=== PATIENT | female | born 1930 | race African-American/Black ===

== ENCOUNTER 2018-07-09 11:20 | Inpatient (IN) | payer OTHER ==
[~2018-07-09] VITALS: Ht 170.2 cm; Wt 78.0 kg
[2018-07-09 12:09] LABS: PLATELET COUNT 272 x10^3mcL (130-400)
[2018-07-09 12:15] LABS: CALCIUM 8.9 mg/dL (8.5-10.1); CARBON DIOXIDE 30.9 mmol/L (21-32); CHLORIDE SERUM 101 mmol/L (98-107); GLUCOSE SERUM 104 mg/dL (74-106); POTASSIUM SERUM 4.4 mmol/L (3.5-5.1); SODIUM SERUM 138 mmol/L (136-145)
[2018-07-09 12:18] LABS: RED CELL DISTRIBUTION WIDTH 15.8 % (11.5-14.5)
[2018-07-09 12:20] LABS: ALBUMIN 3.4 g/dL (3.4-5.0); ALKALINE PHOSPHATASE 80 U/L (46-116); ALT/SGPT 17 U/L (14-59); AST/SGOT 11 U/L (15-37); BILIRUBIN TOTAL 0.34 mg/dL (0.20-1.00); TOTAL PROTEIN, SERUM 7.3 g/dL (6.4-8.2)
[2018-07-09 12:56] LABS: BAND NEUTROPHIL 0 % (0-10); BASOPHIL 0 % (0-2); MONOCYTE 12 % (0-7); SEGMENTED NEUTROPHILS 59 % (37-75)
[2018-07-09 12:57] LABS: rbc morphology (normal/abnorm) ABNORMAL (NORMAL)
[2018-07-09] MEDS ORDERED: HYDROCHLOROTH12.5 M2 PO (13:46)
[2018-07-09] MEDS ORDERED: D-20001 TAB PO (13:46)
[2018-07-09] MEDS ORDERED: VITAMIN C PUR1000 M1 PO (13:46)
[2018-07-09] MEDS ORDERED: LEXAPRO5 M1 PO (13:46)
[2018-07-09 14:14] LABS: UA SPECIFIC GRAVITY <=1.005 (1.005-1.035); microscopic required? YES; urine erythrocyte 1+ (NEGATIVE)
[2018-07-09 14:24] VITALS: BP 146/49
[2018-07-09 14:25] LABS: AMPHETAMINE QUAL UR NONE DETECTED (See below)
[2018-07-09 14:32] VITALS: Ht 170.2 cm; Wt 78.0 kg
[2018-07-09 18:58] VITALS: BP 129/46
[2018-07-09 19:36] LABS: MAGNESIUM 1.9 mg/dL (1.8-2.4); PHOSPHOROUS 3.7 mg/dL (2.5-4.9)
[2018-07-09 19:42] LABS: CHOLESTEROL/HDL RATIO 2.2
[2018-07-09 19:44] LABS: FREE T4 0.89 ng/dL (0.76-1.46); FREE THYROXINE INDEX 3.1 ug/dL (1.4-4.5); T3 TOTAL 1.2 ng/mL; T4(THYROXINE) 8.8 ug/dL (4.7-13.3)
[2018-07-09 21:17] VITALS: BP 129/49
[2018-07-10 05:44] VITALS: BP 140/67
[2018-07-10 08:30] LABS: BASOPHIL % 1.1 % (0-2); PLATELET COUNT 238 x10^3mcL (130-400)
[2018-07-10 08:32] LABS: RED CELL DISTRIBUTION WIDTH 16.2 % (11.5-14.5)
[2018-07-10 09:26] VITALS: BP 147/67
[2018-07-10 11:02] LABS: CALCIUM 8.6 mg/dL (8.5-10.1); CHLORIDE SERUM 105 mmol/L (98-107); CREATININE SERUM 0.8 mg/dL (0.6-1.0); GLUCOSE SERUM 118 mg/dL (74-106); MAGNESIUM 1.9 mg/dL (1.8-2.4); PHOSPHOROUS 3.6 mg/dL (2.5-4.9); POTASSIUM SERUM 3.9 mmol/L (3.5-5.1); SODIUM SERUM 139 mmol/L (136-145)
[2018-07-10 13:59] VITALS: BP 142/52
[2018-07-10 17:33] VITALS: BP 157/64
[2018-07-10 20:52] VITALS: BP 147/60
[2018-07-11 05:12] VITALS: BP 140/66
[2018-07-11 06:06] LABS: PLATELET COUNT 240 x10^3mcL (130-400)
[2018-07-11 06:36] LABS: RED CELL DISTRIBUTION WIDTH 16.2 % (11.5-14.5)
[2018-07-11 06:39] LABS: CALCIUM 8.5 mg/dL (8.5-10.1); CHLORIDE SERUM 107 mmol/L (98-107); CREATININE SERUM 0.7 mg/dL (0.6-1.0); GLUCOSE SERUM 117 mg/dL (74-106); PHOSPHOROUS 3.7 mg/dL (2.5-4.9); SODIUM SERUM 139 mmol/L (136-145)
[2018-07-11 07:23] LABS: BAND NEUTROPHIL 2 % (0-10); MONOCYTE 9 % (0-7); SEGMENTED NEUTROPHILS 70 % (37-75)
[2018-07-11 07:27] LABS: burr cell (echinocyte) 1+; rbc morphology (normal/abnorm) ABNORMAL (NORMAL)
[2018-07-11 07:28] LABS: PLATELET MORPHOLOGY PLATELETS NORMAL
[2018-07-11 09:15] VITALS: BP 152/61
[2018-07-11 12:41] VITALS: BP 130/56
[2018-07-11 16:34] VITALS: BP 129/54
[2018-07-11 20:56] VITALS: BP 129/52
[2018-07-12 05:59] VITALS: BP 146/65
[2018-07-12 06:26] LABS: CALCIUM 8.8 mg/dL (8.5-10.1); CARBON DIOXIDE 26.1 mmol/L (21-32); CHLORIDE SERUM 105 mmol/L (98-107); CREATININE SERUM 0.7 mg/dL (0.6-1.0); GLUCOSE SERUM 110 mg/dL (74-106); MAGNESIUM 1.7 mg/dL (1.8-2.4); PHOSPHOROUS 3.7 mg/dL (2.5-4.9); POTASSIUM SERUM 3.9 mmol/L (3.5-5.1); SODIUM SERUM 141 mmol/L (136-145)
[2018-07-12 08:19] LABS: PLATELET COUNT 248 x10^3mcL (130-400)
[2018-07-12 08:21] LABS: BASOPHIL % 0 % (0-2); RED CELL DISTRIBUTION WIDTH 16.1 % (11.5-14.5)
[2018-07-12 09:17] VITALS: BP 143/62
[2018-07-12] MEDS ORDERED: METP PO (09:42)
[2018-07-12 12:14] VITALS: BP 143/62
[2018-07-12 13:00] VITALS: BP 139/61
== END 2018-07-12 15:25 | disposition home or self-care (01) | DRG 377 ==
LOC: ED 11:20 → DU 13:24
PROVIDERS: Family Medicine; General Practice; Internal Medicine Gastroenterology; Specialist
PROC: 0DB68ZX Excision of Stomach, Via Natural or Artificial Opening Endoscopic, Diagnostic (ICD-10-PCS; principal; 2018-07-10 11:00)
PROC: 0D758ZZ Dilation of Esophagus, Via Natural or Artificial Opening Endoscopic (ICD-10-PCS; 2018-07-10 11:00)
PROC: 0DJD8ZZ Inspection of Lower Intestinal Tract, Via Natural or Artificial Opening Endoscopic (ICD-10-PCS; 2018-07-11)
DX: K57.91 Diverticulosis of intestine, part unspecified, without perforation or abscess with bleeding (principal); N17.0 Acute kidney failure with tubular necrosis; D62 Acute posthemorrhagic anemia; I10 Essential (primary) hypertension; E78.5 Hyperlipidemia, unspecified; F03.90 Unspecified dementia, unspecified severity, without behavioral disturbance, psychotic disturbance, mood disturbance, and anxiety; Z68.27 Body mass index [BMI] 27.0-27.9, adult; R13.10 Dysphagia, unspecified
CPT/HCPCS: 43235; 45378; 83880; 84439; J1200; J1610; J2250; J2310; J3010; J3490; J7030; Q0092